=== PATIENT | male | born 1960 | race Caucasian/White ===

== ENCOUNTER 2017-01-31 18:47 | Emergency (ER) | payer BC, OTHER ==
--- NOTE | 2017-01-31 19:46 | EDM.PDOC ---
ED HPI GENERAL MEDICAL PROBLEM - General Chief Complaint: Back Pain or Injury Stated Complaint: PAIN IN LEFT LEG Time Seen by Provider: 01/31/17 19:18 Source of Information: Reports: Patient History Limitations: Reports: No Limitations - History of Present Illness INITIAL COMMENTS - FREE TEXT/NARRATIVE: The patient presents with left lower back pain that goes down his leg. This started a few days ago. He has a history of a bulging disc at L4/L5. He had an injection a few years ago and he was doing good. He has been off for a few days and riding in the car. He thinks that has aggravated it. He denies numbness or weakness down his leg. He has no bowel or bladder problems. Onset: Gradual Duration: Day(s): Location: Reports: Back (left lower) Quality: Reports: Sharp Severity: Moderate Improves with: Reports: None Worsens with: Reports: Movement Associated Symptoms: Reports: No Other Symptoms Left Hip Pain Score (Numeric/FACES): 5 ED ROS GENERAL - Review of Systems Review Of Systems: See Below Constitutional: Reports: No Symptoms HEENT: Reports: No Symptoms Respiratory: Reports: No Symptoms Cardiovascular: Reports: No Symptoms Endocrine: Reports: No Symptoms GI/Abdominal: Reports: No Symptoms : Reports: No Symptoms Musculoskeletal: Reports: Back Pain (Left lower) ED EXAM,LOWER BACK PAIN/INJURY - Physical Exam Exam: See Below Exam Limited By: No Limitations General Appearance: Alert, No Apparent Distress Ears: Normal External Exam Nose: Normal Inspection Head: Atraumatic, Normocephalic Neck: Normal Inspection Respiratory/Chest: No Respiratory Distress, Lungs Clear, Normal Breath Sounds Cardiovascular: Regular Rate, Rhythm, No Edema, No Murmur GI/Abdominal: Soft, Non-Tender, No Organomegaly, No Mass Back Exam: Other (No pain upon palpation to the lower back. He does have pain with movement of his left leg. He has no numbness or weakness.) Course - Vital Signs Last Recorded V/S: Last Vital Signs Temp 98.5 F 01/31/17 19:24 Pulse 86 01/31/17 19:24 Resp 20 01/31/17 19:24 BP 167/103 H 01/31/17 19:24 Pulse Ox 95 01/31/17 19:24 Departure - Departure Time of Disposition: 19:45 Disposition: Home, Self-Care 01 Condition: Good Clinical Impression: Bulging disc Low back pain Qualifiers: Chronicity: acute Back pain laterality: left Sciatica presence: with sciatica Sciatica laterality: sciatica of left side Qualified Code(s): M54.42 - Lumbago with sciatica, left side - Discharge Information Forms: ED Department Discharge Additional Instructions: Take the flexeril and percocet for pain. Follow up with your doctor.
== END 2017-01-31 20:00 | disposition home or self-care (01) ==
LOC: JD.ED 18:47
DX: M54.42 Lumbago with sciatica, left side (principal)
CPT/HCPCS: 99283